=== PATIENT | female | born 1960 | race Caucasian/White ===

== ENCOUNTER → 2016-08-18 | Day surgery (SDC) | payer OTHER | END | disposition home or self-care (01) | LOC: FAS 05:50 | DX: G56.01 Carpal tunnel syndrome, right upper limb (principal); G43.909 Migraine, unspecified, not intractable, without status migrainosus; E11.9 Type 2 diabetes mellitus without complications; Z79.899 Other long term (current) drug therapy; Z98.890 Other specified postprocedural states | CPT/HCPCS: J1885; J2405; J2704; J3010 ==